=== PATIENT | male | born 1985 | race Two or more races ===

== ENCOUNTER 2021-08-05 19:11 | Emergency (ER) | payer SELFPAY ==
[~2021-08-05] VITALS: Ht 165.1 cm; Wt 95.1 kg
--- NOTE | 2021-08-05 19:33 | PHYS DOC ---
Past Medical History Past Surgical History: No Surgical History General Adult EDM: Chief Complaint: ABDOMINAL PAIN HPI: HPI: Patient is a 36 year old male with no significant medical history who presents to the ED today complaining of 8 out of 10 pain below his left rib, left upper quadrant, symptoms began 5 days ago after he lifted heavy rugs. Patient denies any back pain, chest pain, nausea, vomiting. States the pain is worse on pushing on the affected area. Patient is Thai-speaking and interpretation is provided by family Review of Systems: Review of Systems: Constitutional: Denies fever or chills. [] Eyes: Denies change in visual acuity. [] HENT: Denies nasal congestion or sore throat. [] Respiratory: Reports left lower rib pain, denies cough or shortness of breath. [] Cardiovascular: Denies chest pain or edema. [] GI: Reports left upper quadrant abdominal pain, denies nausea, vomiting, bloody stools or diarrhea. [] : Denies dysuria. [] Musculoskeletal: Denies back pain or joint pain. [] Integument: Denies rash. [] Neurologic: Denies headache, focal weakness or sensory changes. [] ] Psychiatric: Denies depression or anxiety. [] Heart Score: C/O Chest Pain: N/A Risk Factors: Risk Factors: DM, Current or recent (<one month) smoker, HTN, HLP, family history of CAD, obesity. Risk Scores: Score 0 - 3: 2.5% MACE over next 6 weeks - Discharge Home Score 4 - 6: 20.3% MACE over next 6 weeks - Admit for Clinical Observation Score 7 - 10: 72.7% MACE over next 6 weeks - Early Invasive Strategies Allergies: Allergies: Allergies Coded Allergies Type Severity Reaction Last Updated Verified No Known Drug Allergies 08/05/21 No Physical Exam: PE: Constitutional: Well developed, well nourished, no acute distress, non-toxic appearance. [] HENT: Normocephalic, atraumatic, bilateral external ears normal, oropharynx moist, no oral exudates, nose normal. [] Eyes: PERRLA, EOMI, conjunctiva normal, no discharge. [] Neck: Normal range of motion, no tenderness, supple, no stridor. [] Cardiovascular:Heart rate regular rhythm, no murmur [] Lungs & Thorax: Reproducible pain on palpation of the area below the left ribs, breath sounds clear to auscultation [] Abdomen: Bowel sounds normal, soft, tenderness on palpation of the left upper quadrant, no masses, no pulsatile masses. [] Skin: Warm, dry, no erythema, no rash. [] Back: No tenderness, no CVA tenderness. [] Extremities: No tenderness, no cyanosis, no clubbing, ROM intact, no edema. [] Neurologic: Alert and oriented X 3, normal motor function, normal sensory function, no focal deficits noted. [] Psychologic: Affect normal, judgement normal, mood normal. [] Current Patient Data: Vital Signs: Vital Signs Date Time Temp Pulse Resp B/P (MAP) Pulse Ox O2 Delivery O2 Flow Rate FiO2 08/05/21 19:12 98.5 83 16 150/93 (112) 98 Room Air 98.5 EKG: EK interpreted by Dr. Epperson sinus rhythm, heart rate 81 no STEMI Radiology/Procedures: Radiology/Procedures: []PROCEDURE: CT CHEST ABDOMEN PELVIS WO EXAM: Chest, abdomen and pelvis CT without intravenous contrast. HISTORY: Pain. Lifting injury. TECHNIQUE: Computed tomographic images of the chest, abdomen and pelvis were obtained without contrast. Multiplanar reformatting was performed. *One or more of the following individualized dose reduction techniques were utilized for this examination: 1. Automated exposure control. 2. Adjustment of the mA and/or kV according to patient size. 3. Use of iterative reconstruction technique. COMPARISON: None. FINDINGS: Chest: The heart is normal in size. The aorta is normal in caliber. There is no lymphadenopathy. There is no infiltrate, pleural effusion or pneumothorax. There is bilateral posterior dependent atelectasis. There is linear atelectasis or scarring within the right middle and lower lobes. There is no suspicious pulmonary nodule. There is no fracture. There is mild degenerative change involving the thoracic spine. Abdomen and pelvis: There is hepatic steatosis. The gallbladder is contracted. The pancreas and spleen and adrenal glands are unremarkable. The kidneys are unremarkable. There is no appendicitis. There is no bowel obstruction. There is no abnormal bowel wall thickening. The urinary bladder is unremarkable. The aorta is normal in caliber. There is no lymphadenopathy. There is degenerative change involving the spine. There is no acute osseous finding. IMPRESSION: 1. No acute thoracic, abdominal or pelvic finding. 2. Hepatic steatosis. Electronically signed by: Brenda Mcbride MD (08/05/2021 8:43 PM) [facility] DICTATED and SIGNED BY: BRENDA MCBRIDE MD DATE: 08/05/[id number] 0 Course & Med Decision Making: Course & Med Decision Making Pertinent Labs and Imaging studies reviewed. (See chart for details) This is a 36-year-old male patient presented to the ED today complaining of pain below the left ribs and the left upper quadrant, symptoms began 5 days ago after lifting heavy rugs CT chest, abdomen and pelvis are negative for any acute findings, CBC, CMP, troponin-no acute findings. Patient likely has a muscle strain. Discharged home. Provided return precautions. Follow-up with PCP in 1 to 2 weeks Geetha Disclaimer: Geetha Disclaimer: This electronic medical record was generated, in whole or in part, using a voice recognition dictation system. Departure Departure Impression: Primary Impression: Abdominal muscle strain Qualified Codes: S39.011A - Strain of muscle, fascia and tendon of abdomen, initial encounter Disposition: HOME / SELF CARE / HOMELESS Condition: STABLE Patient Instructions: Muscle Strain, [id number] Additional Instructions: You were evaluated in the emergency room, your CT of the chest, abdomen and pelvis are negative for any acute findings, your lab work is negative for any acute findings. You likely strained your muscles in your abdomen/chest region. You can apply ice or heat to the area as tolerated. Take the prescribed medications as ordered. Follow-up with your doctor in 1 Scripts Naproxen (NAPROXEN) 500 Mg Tablet 1 TAB PO BID for pain, #14 TAB 0 Refills Prov: RICA KWOK APRN 08/05/21 Cyclobenzaprine Hcl (CYCLOBENZAPRINE HCL) 10 Mg Tablet 1 TAB PO TID, #30 TAB Prov: RICA KWOK APRN 08/05/21 RICA KWOK APRN Aug 05, 2021 19:33
[2021-08-05] MEDS ORDERED: CYCLOBENZAPRINE 10 MG TABLET. PO ONE (20:00)
[2021-08-05] MEDS ORDERED: NAPROXEN 500 MG TABLET PO ONE (20:00)
[2021-08-05] MEDS ORDERED: HYDROcodone/APAP 5/325MG 1 TAB TABLET PO ONE (20:00)
[2021-08-05 20:04] LABS: BASO % 1 % (0-3); EOS # 0.3 x10^3/uL (0.0-0.7); EOS % 5 % (0-3); HEMATOCRIT 43.2 % (39.0-53.0); HEMOGLOBIN 14.7 g/dL (13.0-17.5); LYMPH # 2.5 x10^3/uL (1.0-4.8); LYMPH % 40 % (24-48); MEAN CORPUSCULAR HEMOGLOBIN 30 pg (25-35); MEAN CORPUSCULAR HGB CONC 34 g/dL (31-37); MEAN CORPUSCULAR VOLUME 88 fL (79-100); MONO # 0.7 x10^3/uL (0.0-1.1); MONO % 12 % (0-9); NEUT # 2.7 x10^3/uL (1.8-7.7); NEUT % 43 % (31-73); PLATELET COUNT 225 x10^3/uL (140-400); RED CELL DISTRIBUTION WIDTH 12.8 % (11.5-14.5); WHITE BLOOD COUNT 6.2 x10^3/uL (4.0-11.0)
[2021-08-05 20:18] LABS: CALCIUM 8.8 mg/dL (8.5-10.1); CREATININE 0.8 mg/dL (0.7-1.3); GFR 108.2; POTASSIUM 3.8 mmol/L (3.5-5.1)
[2021-08-05 20:22] LABS: ALBUMIN 3.6 g/dL (3.4-5.0); MAGNESIUM 2.2 mg/dL (1.8-2.4); TOTAL BILIRUBIN 0.3 mg/dL (0.2-1.0); TOTAL PROTEIN 7.1 g/dL (6.4-8.2)
--- NOTE | 2021-08-05 20:27 | EKG ---
[facility] [address] [place] [address] Test Date: 2021-08-05 Test Time: 19:17:47 Pat Name: DIMITRI GUTIERRES Department: Room: Gender: M Maintenance Department Manager: : 1985 Requested By: RICA KWOK Order Number: [id number] Reading MD: Roman Brock Measurements Intervals [place] Rate: 81 P: 28 SC: 160 QRS: 38 QRSD: 80 T: 4 QT: 308 QTc: 362 Interpretive Statements SINUS RHYTHM NORMAL ECG RI6.02 No previous ECG available for comparison Electronically Signed On 08-06-2021 13:49:33 [employer] by Roman Brock
--- NOTE | 2021-08-05 20:45 | RAD ---
EXAM: Chest, abdomen and pelvis CT without intravenous contrast. HISTORY: Pain. Lifting injury. TECHNIQUE: Computed tomographic images of the chest, abdomen and pelvis were obtained without contras t. Multiplanar reformatting was performed. *One or more of the following individualized dose reduction techniques were utilized for this examina tion: 1. Automated exposure control. 2. Adjustment of the mA and/or kV according to patient size. 3. Use of iterative reconstruction technique. COMPARISON: None. FINDINGS: Chest: The heart is normal in size. The aorta is normal in caliber. There is no lymphadenop athy. There is no infiltrate, pleural effusion or pneumothorax. There is bilateral posterior dependen t atelectasis. There is linear atelectasis or scarring within the right middle and lower lobes. There is no suspicious pulmonary nodule. There is no fracture. There is mild degenerative change involving the thoracic spine. Abdomen and pelvis: There is hepatic steatosis. The gallbladder is contracted. The pancreas and splee n and adrenal glands are unremarkable. The kidneys are unremarkable. There is no appendicitis. There is no bowel obstruction. There is no abnormal bowel wall thickening. The urinary bladder is unremarka ble. The aorta is normal in caliber. There is no lymphadenopathy. There is degenerative change involv ing the spine. There is no acute osseous finding. IMPRESSION: 1. No acute thoracic, abdominal or pelvic finding. 2. Hepatic steatosis. Electronically signed by: Brenda Mcbride MD (08/05/2021 8:43 PM) [facility]
[2021-08-05 20:59] LABS: BILIRUBIN,URINE NEGATIVE (NEG); COLOR,URINE YELLOW; NITRITE,URINE NEGATIVE (NEG); PROTEIN,URINE NEGATIVE (NEG-TRACE)
[2021-08-05 21:00] VITALS: BP 146/71
[2021-08-05 21:06] LABS: BARBITURATES NEG (NEG); BENZODIAZEPINES NEG (NEG); CANNABINOIDS NEG (NEG); COCAINE NEG (NEG); METHADONE NEG (NEG); OPIATES NEG (NEG); PHENCYCLIDINE NEG (NEG)
[2021-08-05 21:08] LABS: AMPHETAMINE/METHAMPHETAMINE NEG (NEG)
[2021-08-05 21:11] LABS: BACTERIA,URINE 0 /HPF (0-FEW); CLARITY,URINE CLEAR; RBC,URINE 0 /HPF (0-2); WBC,URINE 0 /HPF (0-4)
[2021-08-05] MEDS ORDERED: CYCL10TA19 PO (21:12)
[2021-08-05] MEDS ORDERED: NAPR-514 PO (21:12)
== END 2021-08-05 22:22 | disposition home or self-care (01) ==
LOC: ER 19:11
DX: S39.011A Strain of muscle, fascia and tendon of abdomen, initial encounter (principal); R07.81 Pleurodynia; X50.0XXA Overexertion from strenuous movement or load, initial encounter; Y93.89 Activity, other specified; Y92.89 Other specified places as the place of occurrence of the external cause; Y99.8 Other external cause status
CPT/HCPCS: 36415; 71250; 74176; 80053; 80307; 81001; 83690; 83735; 83880; 84443; 84484; 85025; 93005; 99285-25